=== PATIENT | female | born 1995 | race Caucasian/White ===

== ENCOUNTER 2017-11-14 07:11 | Day surgery (SDC) | payer OTHER ==
[~2017-11-14] VITALS: Ht 160 cm; Wt 117.8 kg
[2017-11-14 07:48] VITALS: BP 130/75; PULSE 101; TEMP 97.8
[2017-11-14] MEDS ORDERED: EFFEXOR 3737.5 MG/TA PO (07:55)
[2017-11-14] MEDS ORDERED: MOTRIN 800800 MG/TAB PO (07:56)
[2017-11-14 08:52] VITALS: BP 121/68; PULSE 96
[2017-11-14 09:00] VITALS: BP 123/64; PULSE 96
[2017-11-14 09:15] VITALS: BP 128/56; PULSE 84
[2017-11-14 09:26] VITALS: BP 143/76; PULSE 92
== END 2017-11-14 09:48 | disposition home or self-care (01) ==
LOC: SDCO 07:11 → EDSEX 11:30
DX: K29.30 Chronic superficial gastritis without bleeding (principal); Z80.0 Family history of malignant neoplasm of digestive organs
CPT/HCPCS: OP; J2250; J2405; J3010; J7030